=== PATIENT | male | born 1970 | race Caucasian/White ===

== ENCOUNTER 2018-04-03 10:01 | Observation (INO) | payer BC, SELFPAY ==
[2018-04-03] VITALS (13 sets, daily range): BP systolic 101–157; BP diastolic 61–99; PULSE 74–109; RESP 16–20; TEMP 36.6–38.9; O2SAT 93–99; BMI 29.7; BMI 29.8
--- NOTE | 2018-04-03 10:28 | CT_ITS ---
STUDY: CT ABDOMEN AND PELVIS WITH CONTRAST REASON FOR EXAM: Male, 47 years old. Right lower quadrant pain since last night with elevated white blood cell count. RADIATION DOSAGE (If Supplied By Facility): CTDIvol = ( 16.63 ) mGy, DLP = ( 1311.65 ) mGycm TECHNIQUE: Transaxial images were obtained from the dome of the diaphragm to the symphysis pubis without oral contrast. 100ML ml of Isovue 300 contrast was administered. Sagittal and coronal images were reconstructed. Individualized dose optimization techniques were used for this CT. COMPARISON: None. FINDINGS: Minimal degree of increased markings at the lung bases suggestive of linear atelectasis. The visualized portions of the heart are within normal limits. There is decreased attenuation of the liver consistent with steatosis. Normal gallbladder and extrahepatic biliary system. Normal spleen. Normal pancreas. Normal bilateral adrenal glands. Normal right kidney. Normal left kidney. There is a small hiatal hernia. Normal small intestine. Normal colon. There is a tubular, thick-walled appendix (>7mm), consistent with acute appendicitis. Normal abdominal aorta. Normal inferior vena cava. Normal retroperitoneum. Normal urinary bladder. There is a right-sided inguinal hernia containing adipose tissue. Grade 1 anterior listhesis of L5 on S1 with spondylolysis of the pars interarticularis of the L5 vertebrae. CT/Abdomen/Pelvis W IV Cont ONLY IMPRESSION: Findings in keeping with acute appendicitis with inflammatory changes in the right lower quadrant. No abscess is seen at this time. Fatty infiltration of the liver. Electronically Signed: Noe Mello MD at 11:28 EDT Tel [phone], Service support ,
--- NOTE | 2018-04-03 10:29 | ED.VIS.GEN ---
History of Present Illness Chief Complaint: Abd Pain Informant: Patient Onset: Hours - 10-11 Context: Gradual Onset Timing: Continuous Quality: aching Location: periumbilical, worse to the right. no radiation. no migration. Current Severity: Moderate Maximum Severity: Moderate Worsened by: nothing Relieved by: nothing. tried rosalind-seltzer, no help. 2 BM's overnight without relief. Associated Symptoms: anorexia. no n/v or fevers. no injury. Prior similar symptoms: No Past Medical History - Allergies and Home Meds Allergies/Adverse Reactions: Allergies Penicillins Allergy (Verified 04/03/18 10:02) Unknown Primary Care Physician: Horacio Campos MD [Primary Care Provider] - Past Medical History: None Surgical History: - - possibly umbilical surgery when baby but pt not sure Lives: Spouse/ Significant Other Smoking Status: Never smoker Drugs: None Review of Systems All systems negative except as indicated General: Reports: Malaise Gastrointestinal: Reports: Abdominal pain. Denies: Nausea, Vomiting, Diarrhea, Constipation, Melena, Hematochezia Genitourinary: Denies: Dysuria, Hematuria, Frequency Musculoskeletal: Denies: Back pain Physical Exam Vital Signs/Narrative: Vital Signs Temp Pulse Resp BP Pulse Ox 04/03/18 10:04 98.5 F 85 17 149/93 H 97 Inital Vital Signs reviewed: Yes General: Well nourished, Well developed Head: Normocephalic, Atraumatic Eyes: Perrl, EOMI ENT: Moist mucous membranes, No rhinorrhea Neck: Supple, Nontender Cardiovascular: Regular rate, Regular rhythm, No murmurs Respiratory: No distress, CTA bilaterally, Chest nontender Abdomen: Soft, Nondistended, Normal bowel sounds, Tender - RLQ only. Negative for: Guarding, Rebound tenderness, Psoas sign, Obturator sign, Rovsig's sign, Lacey's sign Back: Nontender, Normal Inspection. Negative for: CVA tenderness Extremities: Nontender, No edema Skin: Normal color, No rash Neurological: Alert, Oriented x3, Cranial nerves II-XII grossly intact, Normal Strength, Normal Sensation Psychological: Normal affect Diagnostic/Tx/Re-eval Impressions Abdomen/Pelvis CT 04/03/18 10:28 IMPRESSION: Findings in keeping with acute appendicitis with inflammatory changes in the right lower quadrant. No abscess is seen at this time. Fatty infiltration of the liver. Electronically Signed: Noe Mello MD at 11:28 EDT Tel [phone], Service support , 04/03/18 10:28 Abdomen/Pelvis W IV Cont ONLY [CT] Stat Laboratory Results 04/03/18 04/03/18 04/03/18 Range/Units 10:15 10:15 11:30 WBC 13.0 H (4.4-11.0) K/mm3 RBC 5.47 (4.6-6.2) M/mm3 Hgb 17.0 H (13.0-16.5) g/dl Hct 49.6 (40-54) % MCV 90.7 (80-94) fL MCH 31.1 (27.0-32.0) pg MCHC 34.3 (32-36) g/gl RDW 12.6 (11.6-14.6) % RDW Differential 41.6 (35.1-43.9) fl Plt Count 185 (150-450) K/mm3 MPV 12.2 H (6.2-12.0) fl Immature Gran % (Auto) 0.100 (0.0-0.9) % Neut % (Auto) 83.6 H (47-70) % Lymph % (Auto) 8.0 L (19-41) % Ogle % (Auto) 7.8 (0-10) % Eos % (Auto) 0.4 (0-5) % Baso % (Auto) 0.1 (0-1) % Absolute Neuts (auto) 10.9 H (2.0-7.7) X10^3/uL Absolute Lymphs (auto) 1.04 (0.83-4.51) X10^3/ul Total Counted Not Reportable Sodium 138 (136-145) mmol/L Potassium 4.0 (3.5-5.1) mmol/L Chloride 99 (98-107) mmol/L Carbon Dioxide 30.0 (21.0-32.0) mmol/L Anion Gap 9 (5-15) BUN 20 H (7-18) mg/dL Creatinine 1.04 (0.70-1.30) mg/dL Estim Creat Clear Calc 91.51 ml/min Est GFR (MDRD) Af Amer 97 (>60) mL/min Est GFR (MDRD) Non-Af 81 (>60) mL/min BUN/Creatinine Ratio 19.2 (10-20) RATIO Glucose 103 (74-106) mg/dL Calcium 9.4 (8.5-10.1) mg/dL Urine Color Yellow (Yellow) Urine Clarity Clear (Clear) Urine pH 6.5 (5.0 - 8.0) Ur Specific [place] 1.005 (1.002-1.030) Urine Protein Negative (Negative) mg/dl Urine Glucose (UA) Normal (Normal) mg/dl Urine Ketones Negative (Negative) mg/dl Urine Occult Blood Negative (Negative) /ul Urine Nitrite Negative (Negative) Urine Bilirubin Negative (Negative) mg/dL Urine Urobilinogen Normal (Normal) mg/dl Ur Leukocyte Esterase Negative (Negative) /ul - Medical Decision Making Patient has leukocytosis with left shift, and a CT consistent with appendicitis nonruptured. Discussed with the patient who is okay with the surgeon air cargo ground operations supervisor, who is Dr. Patel. She will see the patient in the ER. Ancef ordered. Patient is feeling a little better after morphine and is stable clinically and hemodynamically at this time. Plan is to operating room. Critical care time 32 minutes. Not including procedures. ED Disposition - Plan for ED Patient: Disposition: Acute Care Hospital [facility] Chief Complaint: Abd Pain Diagnosis: Acute appendicitis
[2018-04-03 10:36] LABS: Absolute Lymphocyte Count 1.04 X10^3/ul (0.83-4.51); Absolute Neutrophil Count 10.9 X10^3/uL (2.0-7.7); Basophil# 0.01 X10^3/uL; Basophil% 0.1 % (0-1); Eosinophil# 0.05 X10^3/uL; Eosinophils% 0.4 % (0-5); Hematocrit 49.6 % (40-54); Lymphocyte # 1.04 X10^3/ul (4.0); Mean Corp Hgb Conc 34.3 g/gl (32-36); Mean Corpuscular Hgb 31.1 pg (27.0-32.0); Mean Corpuscular Volume 90.7 fL (80-94); Mean Platelet Vol. 12.2 fl (6.2-12.0); Monocyte# 1.01 X10^3/uL; Monocyte% 7.8 % (0-10); Neutrophil # 10.89 X10^3/uL (2.7-7.7); Neutrophil % 83.6 % (47-70); Platelet Count 185 K/mm3 (150-450); RBC Distribution Width CV 12.6 % (11.6-14.6); RBC Distribution Width SD 41.6 fl (35.1-43.9); Red Blood Count 5.47 M/mm3 (4.6-6.2)
[2018-04-03 10:37] LABS: POSITIVE COUNT NO; POSITIVE DIFFERENTIAL NO; POSITIVE MORPHOLOGY NO
[2018-04-03] MEDS: 0.9% Normal Saline 1,000 ML 125 ML IV ×2 (10:39→20:00)
[2018-04-03] MEDS: Morphine 4 MG/ML Syringe IV ×4 (10:40→15:08)
[2018-04-03 10:43] LABS: Anion Gap 9 (5-15); BUN 20 mg/dL (7-18); BUN/Creat Ratio 19.2 RATIO (10-20); Calcium,Total 9.4 mg/dL (8.5-10.1); Chloride 99 mmol/L (98-107); Creatinine, Serum 1.04 mg/dL (0.70-1.30); EST Glomerular Filtration Rate 81 mL/min (>60); Est Glom Filt Rate - Afr Amer 97 mL/min (>60); Estimated Creatinine Clearance 91.51 ml/min; Glucose 103 mg/dL (74-106); Sodium Level 138 mmol/L (136-145)
--- NOTE | 2018-04-03 11:38 | NURSING ---
DR JAC GATES
[2018-04-03 11:40] LABS: Bacteria 0 SEEN /hpf (None Seen); Mucous, Urine 0 SEEN /hpf (<or=2+); Squamous Epithelial Cells - UA 0 SEEN /hpf (0-5); White Blood Cells 0 SEEN /hpf (0-5)
[2018-04-03 11:44] LABS: Color, Urine Yellow (Yellow); Glucose, Dipstick Normal (Normal); Ketone-Dipstick Negative (Negative); Leukocyte Esterase-Dipstick Negative /ul (Negative); Nitrite-Dipstick Negative (Negative); Occult Blood-Urine Negative /ul (Negative); Protein-Dipstick Negative (Negative); Specific Gravity, Urine 1.005 (1.002-1.030); Urine Bilirubin Dipstick Negative (Negative); Urine Clarity Clear (Clear); Urine Urobilinogen Normal (Normal); Urine pH 6.5 (5.0 - 8.0)
--- NOTE | 2018-04-03 11:49 | NURSING ---
DR NATHAN IN ER
[2018-04-03 11:53] LABS: Red Blood Cells-Urine 0-5 SEEN /hpf (0-5)
[2018-04-03] MEDS: Cefazolin 2 GM in 0.9% Normal Saline 100 ML IV (11:59)
--- NOTE | 2018-04-03 12:05 | HP.PCM_ITS ---
History and Physical Date of Admission: 04/03/18 Chief Complaint: abdominal pain History of Present Illness: 47 y/o WM presents with sudden onset of right lower quadrant abdominal pain at around MDNT. Awoke patient from sleep. Presented to ED for evaluation. WBC is 13K with left shift of differential. Afebrile. CT scan - tubular, thick-walled appendix (>7mm), consistent with acute appendicitis, also right inguinal hernia Past Medical History: hypertension Past Surgical History: right ACL repair Medications: lisnopril zyrtec prilosec Allergies: pcn Social history: TOB use denies , lives with Review of Systems: General - denies fevers Cardiovascular denies chest pain, denies history of heart attack Pulmonary denies shortness of breath, denies coughing up blood Gastrointestinal as per HPI, denies blood in stools Neurological denies numbness/weakness of extremities, denies seizurese Genitourinary denies burning with urination, denies blood in urine Hematological denies spontaneous/prolonged bleeding Skin denies open non healing wounds Musculoskeletal denies history of fractures Endocrine denies diabetes Psychological denies hallucinations Physical examination: Vital signs Ht: 5'11 Wt: 215# General WD/WN WM in no apparent distress, alert and oriented, not septic appearing HEENT Normocephalic. EOM intact with sclera clear and no icterus noted. Neck is supple with no jugular venous distention noted. Trachea is midline. Lungs clear to auscultation. normal breath sounds in all lung martinez. No rales/rhonchi/wheezing noted. No labored breathing noted, such as retractions. Heart normal S1 and S2 auscultated. No rubs/clicks/murmurs noted. Normal size and location by auscultation. Abdomen soft but tender in right lower quadrant with positive Rovsing's sign , decreased bowel sounds. Extremities no calf tenderness or swelling noted. No pitting edema noted. Genitourinary/Rectal deferred Skin no rashes noted. Normal skin integrity. Neurological no focal deficits Psychological normal affect, patient is calm and appropriate Impression: appendicitis by CT scan elevated WBC with left shift right lower quadrant abdominal pain Informed consent: I have discussed the above with the patient and his who is present with him. I have offered the patient the procedure of laparoscopic appendectomy. I have explained the procedure to the patient. I have counseled the patient as to the risks of the procedure, including but not limited to: infection, bleeding, injury to any blood vessels/nerves, scar tissue, injury to any intraabdominal organs, injury to kidney/ureters, injury to bowel/bladder, intraabdominal abscess/bleeding, hernias at incisional sites, wound infections, possible open procedure, complications of anesthesia, postoperative pneumonia/cardiac problems/blood clots etc. the patient understands. He agrees to proceed. I have answered all questions to the patient?s satisfaction and the patient has no further questions.
--- NOTE | 2018-04-03 12:06 | NURSING ---
316 JAC APPENDICITIS OBS
[2018-04-03] MEDS: 0.9% NaCl Peripheral Flush Adult/Peds IV (15:08)
--- NOTE | 2018-04-03 16:00 | APP_PTH ---
PATIENT: KRISTIE BAUTISTA LOC: MS3 U#:[id number] AGE/SX: 47/M ROOM: RI316 RE04/03/[address]: Dr. Zuleyka Patel MD : 1970 BED: 1 DIS: 04/04/2018 SPEC #: [id number] RECD: 04/04/18 06:57 STATUS: STEPHANIE REDominguez #: [id number] YUKI: 04/03/18 16:[address]: Zuleyka Patel DEPT: SURGICAL PATHOLOGY RECD BY: Dayo Kang ENTERED: 04/04/18 11:39 SP TYPE: APPENDIX OTHR DR: Dr. Horacio Campos MD Tissues: Appendix, NOS Procedures: Surgery Specimen Level III HEADER OPERATION: Laparoscopic appendectomy PRE-OP DIAGNOSIS: Acute appendicitis TISSUE SUBMITTED: Appendix MICROSCOPIC DIAGNOSIS Appendix, appendectomy: Acute necrotizing appendicitis. Acute serositis. AM:cr 04/07/18 MICROSCOPIC DESCRIPTION Slides are reviewed. GROSS DESCRIPTION Received is one container labeled with the patient's name and designated appendix. The specimen consists of a vermiform appendix measuring 8 cm in length and 1 cm in average diameter. No gross perforations are evident. Sections reveal a patent lumen. Data Transcriber sections are submitted in one cassette. / AM:cr 04/04/18 TC:2 CPT: 81357
--- NOTE | 2018-04-03 17:16 | OP.PN_ITS ---
Immediate Post-Op Note Date of Procedure: 04/03/18 Primary Surgeon/Physician: Zuleyka Patel licensed massage practitioner: NOT,DEFINED Pre-Operative Diagnosis: appendicitis by CT scan Post-Operative Diagnosis: appendicitis Surgery/Procedure Performed:: laparoscopic appendectomy Description of Surgical Findings:: severe appendicitis, no evidence of perforation, but very friable wall Estimated Blood Loss: < 20 Specimen's removed: appendix Type of Anesthesia:: General ASA Class: ASA2 Plus Emergency - Admit VTE Documentation VTE Present on Admission: Yes VTE Mechan Device Prophylaxis: SCD's
--- NOTE | 2018-04-03 17:24 | ED.DCSUM_ITS ---
History of Present Illness Chief Complaint: Abd Pain Informant: Patient Onset: Hours - 10-11 Context: Gradual Onset Timing: Continuous Quality: aching Location: periumbilical, worse to the right. no radiation. no migration. Current Severity: Moderate Maximum Severity: Moderate Worsened by: nothing Relieved by: nothing. tried rosalind-seltzer, no help. 2 BM's overnight without relief. Associated Symptoms: anorexia. no n/v or fevers. no injury. Prior similar symptoms: No Past Medical History - Allergies and Home Meds Allergies/Adverse Reactions: Allergies Penicillins Allergy (Verified 04/03/18 10:02) Unknown Primary Care Physician: Horacio Campos MD [Primary Care Provider] - Past Medical History: None Surgical History: - - possibly umbilical surgery when baby but pt not sure Lives: Spouse/ Significant Other Smoking Status: Never smoker Drugs: None Review of Systems All systems negative except as indicated General: Reports: Malaise Gastrointestinal: Reports: Abdominal pain. Denies: Nausea, Vomiting, Diarrhea, Constipation, Melena, Hematochezia Genitourinary: Denies: Dysuria, Hematuria, Frequency Musculoskeletal: Denies: Back pain Physical Exam Vital Signs/Narrative: Vital Signs Temp Pulse Resp BP Pulse Ox 04/03/18 10:04 98.5 F 85 17 149/93 H 97 Inital Vital Signs reviewed: Yes General: Well nourished, Well developed Head: Normocephalic, Atraumatic Eyes: Perrl, EOMI ENT: Moist mucous membranes, No rhinorrhea Neck: Supple, Nontender Cardiovascular: Regular rate, Regular rhythm, No murmurs Respiratory: No distress, CTA bilaterally, Chest nontender Abdomen: Soft, Nondistended, Normal bowel sounds, Tender - RLQ only. Negative for: Guarding, Rebound tenderness, Psoas sign, Obturator sign, Rovsig's sign, Lacey's sign Back: Nontender, Normal Inspection. Negative for: CVA tenderness Extremities: Nontender, No edema Skin: Normal color, No rash Neurological: Alert, Oriented x3, Cranial nerves II-XII grossly intact, Normal Strength, Normal Sensation Psychological: Normal affect Diagnostic/Tx/Re-eval Impressions Abdomen/Pelvis CT 04/03/18 10:28 IMPRESSION: Findings in keeping with acute appendicitis with inflammatory changes in the right lower quadrant. No abscess is seen at this time. Fatty infiltration of the liver. Electronically Signed: Noe Mello MD at 11:28 EDT Tel [phone], Service support , 04/03/18 10:28 Abdomen/Pelvis W IV Cont ONLY [CT] Stat Laboratory Results 04/03/18 04/03/18 04/03/18 Range/Units 10:15 10:15 11:30 WBC 13.0 H (4.4-11.0) K/mm3 RBC 5.47 (4.6-6.2) M/mm3 Hgb 17.0 H (13.0-16.5) g/dl Hct 49.6 (40-54) % MCV 90.7 (80-94) fL MCH 31.1 (27.0-32.0) pg MCHC 34.3 (32-36) g/gl RDW 12.6 (11.6-14.6) % RDW Differential 41.6 (35.1-43.9) fl Plt Count 185 (150-450) K/mm3 MPV 12.2 H (6.2-12.0) fl Immature Gran % (Auto) 0.100 (0.0-0.9) % Neut % (Auto) 83.6 H (47-70) % Lymph % (Auto) 8.0 L (19-41) % [place] % (Auto) 7.8 (0-10) % Eos % (Auto) 0.4 (0-5) % Baso % (Auto) 0.1 (0-1) % Absolute Neuts (auto) 10.9 H (2.0-7.7) X10^3/uL Absolute Lymphs (auto) 1.04 (0.83-4.51) X10^3/ul Total Counted Not Reportable Sodium 138 (136-145) mmol/L Potassium 4.0 (3.5-5.1) mmol/L Chloride 99 (98-107) mmol/L Carbon Dioxide 30.0 (21.0-32.0) mmol/L Anion Gap 9 (5-15) BUN 20 H (7-18) mg/dL Creatinine 1.04 (0.70-1.30) mg/dL Estim Creat Clear Calc 91.51 ml/min Est GFR (MDRD) Af Amer 97 (>60) mL/min Est GFR (MDRD) Non-Af 81 (>60) mL/min BUN/Creatinine Ratio 19.2 (10-20) RATIO Glucose 103 (74-106) mg/dL Calcium 9.4 (8.5-10.1) mg/dL Urine Color Yellow (Yellow) Urine Clarity Clear (Clear) Urine pH 6.5 (5.0 - 8.0) Ur Specific [place] 1.005 (1.002-1.030) Urine Protein Negative (Negative) mg/dl Urine Glucose (UA) Normal (Normal) mg/dl Urine Ketones Negative (Negative) mg/dl Urine Occult Blood Negative (Negative) /ul Urine Nitrite Negative (Negative) Urine Bilirubin Negative (Negative) mg/dL Urine Urobilinogen Normal (Normal) mg/dl Ur Leukocyte Esterase Negative (Negative) /ul - Medical Decision Making Patient has leukocytosis with left shift, and a CT consistent with appendicitis nonruptured. Discussed with the patient who is okay with the surgeon cushion cover inspector, who is Dr. Patel. She will see the patient in the ER. Ancef ordered. Patient is feeling a little better after morphine and is stable clinically and hemodynamically at this time. Plan is to operating room. Critical care time 32 minutes. Not including procedures. ED Disposition - Plan for ED Patient: Disposition: Acute Care [facility] Chief Complaint: Abd Pain Diagnosis: Acute appendicitis
[2018-04-03] MEDS: Bupiv/Epi 0.5% Mpf 30 ML Vial (18:19)
--- NOTE | 2018-04-03 19:38 | NURSING ---
Pt back to floor from surgery.
[2018-04-03] MEDS: levoFLOXacin IV 750 MG/150 ML BAG 100 MG IV (20:00)
[2018-04-04 01:36] VITALS: BP 118/70; PULSE 80; RESP 16; TEMP 36.4; O2SAT 95
[2018-04-04] MEDS: 0.9% Normal Saline 1,000 ML 125 ML IV ×2 (05:27→14:26)
[2018-04-04 07:36] VITALS: BP 117/73; PULSE 69; RESP 16; TEMP 37.2; O2SAT 94
--- NOTE | 2018-04-04 07:42 | PCM.OPRPT ---
Report of Operation Date of Procedure: 04/03/18 Pre-Operative Diagnosis: appendicitis by CT scan Post-Operative Diagnosis: appendicitis Surgery/Procedure Performed:: laparoscopic appendectomy Description of Surgical Findings:: severe appendicitis, no evidence of perforation, but very friable wall communications equipment supervisor: NOT,DEFINED Type of Anesthesia:: General Anesthesiologist: Darnell Ann Specimen's removed: appendix Estimated Blood Loss (mL): < 20 Fluids Replaced: 1000 ml RL Description of Procedure: After informed consent was obtained, the patient was brought into the operating room. Appropriate time out protocol was followed. He was placed in the supine position on the operating table. The patient was then placed under general anesthesia. The patients abdomen was then prepped with a sterile surgical skin preparation and sterile surgical drapes were placed. The infraumbilical skin fold was grasped with penetrating clamps and the skin and subcutaneous tissues were infiltrated with local anesthetic. A skin incision was then made with a 15 blade scalpel. A Veress needle was then inserted into the intraabdominal cavity and checked to be in the proper position with a normal saline drop test. A CO2 pneumoperitoneum was then created. Once this was achieved, the Veress needle was removed and a 5 mm trocar was placed in its stead. A 5 mm laparoscope was then inserted into the trocar. Careful examination of the intraabdominal contents was then done. There was no evidence of injury to any internal organs from placement of the Veress needle or the trocar. Under direct visualization, a 12mm suprapubic trocar and a 5mm left lower quadrant trocar was then placed into the intraabdominal cavity. The skin and subcutaneous tissues at these sites were first infiltrated with local anesthetic. Attention was then directed to the right lower quadrant. The appendix was visualized. The mesentery of the appendix was taken down by cauterizing the tissue from the free edge to the base of the appendix with the Harmonic scalpel. Once the base of the appendix was freed of surrounding tissues, then the linear gastrointestinal stapling device was brought into the abdominal cavity via the 12mm port and placed across the base of the appendix. The stapling device was fired, thus stapling across the base of the appendix and transecting it simultaneously. The appendiceal wall was very friable. There was evidence of surrounding fibrinous exudate in the area. There was no purulent fluid. The appendix was then placed in an Endobag and this was brought out through the suprapubic trocar. The appendix was then forwarded to Pathology for analysis. The appendiceal stump was carefully examined. There was no evidence of any active bleeding or fecal leakage. The surrounding tissues were also examined and there was no evidence of any active bleeding or fecal/bile leakage. The area was vigorously irrigated with fluid and all irrigant was aspirated out. The intraabdominal cavity was examined and there was no evidence of further inflammation or tissue abnormality. There was no evidence of any peritoneal fluid. The CO2 pneumoperitoneum was released and all trocars were removed intact. The suprapubic fascia was reapproximated with a figure-of-8 vicryl suture. All skin incisions were reapproximated with monocryl suture. Cavilon and steristrips were applied to reinforce skin closure and proper sterile dressings were placed. The patient was then extubated and brought to the Recovery Room in stable condition. - Complications none noted - Admit VTE Documentation VTE Present on Admission: Yes VTE Mechan Device Prophylaxis: SCD's
--- NOTE | 2018-04-04 07:43 | PCM.PN.SRG ---
Subjective: patient feeling well - Physical Exam General: Alert, Oriented x3 Oral: Moist Mucosa Neck: Supple Abdomen: Soft - appropriate incisional tenderness Vital Signs Temp Pulse Resp BP Pulse Ox 97.6 F L 80 16 118/70 95 04/04/18 01:36 04/04/18 01:36 04/04/18 01:36 04/04/18 01:36 04/04/18 01:36 Oxygen Flow Rate (L/min) 2 Oxygen Delivery Method Room Air Weight: 96.8 kg Body Mass Index (BMI) 29.7 Intake and Output for Last 24 Hours 04/02/18 04/03/18 04/04/18 23:59 23:59 23:59 Intake Total 2443 / 2443 1061 / 1061 Output Total 600 / 600 Balance 1843 / 1843 1061 / 1061 Medical Necessity - Tobacco Use Smoking Status: Never smoker Assessment/Plan All Active Problems Acute appendicitis (Acute) POD#1 s/p laparoscopic appendectomy Plan: d/c to home when passes flatus
--- NOTE | 2018-04-04 07:44 | PCM.DC.APPY ---
Discharge Diet: No Restrictions - drink plenty of fluids, especially water avoid carbonated beverages for a few days Discharge Activity: Return to Normal Activity, May not drive while taking narcotic pain medications. Lifting Restrictions: no lifting greater than 20 pounds for two weeks Call your doctor if your incision/area has: Continuous Slow Oozing, Foul Smelling Discharge Call your doctor if you observe: Fever of 101 or Higher Additional Dressing/Incision Instructions:: Leave dressings in place. May get wet in the shower. Do not soak - no tub baths/swimming Medications to take at Discharge Cetirizine HCl [Zyrtec] 10 mg PO DAILY 04/03/18 Lisinopril [Zestril] 10 mg PO DAILY 04/03/18 Omeprazole Magnesium [Prilosec Otc] 20 mg PO DAILY 04/03/18 Hydrocodone/Acetaminophen [[place] 5-325 Tablet] 1 ea PO Q6H PRN PRN 5 Days #10 tab 04/04/18 levoFLOXacin tablet [Levaquin tablet] 500 mg PO DAILY 5 Days #5 tab 04/04/18 Allergies/Adverse Reactions: Allergies Penicillins Allergy (Verified 04/03/18 10:02) Unknown The following prescriptions were given: Hydrocodone/Acetaminophen [[place] 5-325 Tablet] 1 ea PO Q6H PRN PRN 5 Days #10 tab PRN Reason: Pain levoFLOXacin tablet [Levaquin tablet] 500 mg PO DAILY 5 Days #5 tab Primary Care Physician: Horacio Campos MD [Primary Care Provider] - Test Results: Test results from this visit will be discussed in further detail at your follow-up appointment, if applicable. Please Follow Up With: Zuleyka Patel MD - [phone] When: to be seen on April 11, please call for time, thank you
--- NOTE | 2018-04-04 07:47 | DCINST_ITS ---
Discharge Diet: No Restrictions - drink plenty of fluids, especially water avoid carbonated beverages for a few days Discharge Activity: Return to Normal Activity, May not drive while taking narcotic pain medications. Lifting Restrictions: no lifting greater than 20 pounds for two weeks Call your doctor if your incision/area has: Continuous Slow Oozing, Foul Smelling Discharge Call your doctor if you observe: Fever of 101 or Higher Additional Dressing/Incision Instructions:: Leave dressings in place. May get wet in the shower. Do not soak - no tub baths/swimming Medications to take at Discharge Cetirizine HCl [Zyrtec] 10 mg PO DAILY 04/03/18 Lisinopril [Zestril] 10 mg PO DAILY 04/03/18 Omeprazole Magnesium [Prilosec Otc] 20 mg PO DAILY 04/03/18 Hydrocodone/Acetaminophen [[place] 5-325 Tablet] 1 ea PO Q6H PRN PRN 5 Days #10 tab 04/04/18 levoFLOXacin tablet [Levaquin tablet] 500 mg PO DAILY 5 Days #5 tab 04/04/18 Allergies/Adverse Reactions: Allergies Penicillins Allergy (Verified 04/03/18 10:02) Unknown The following prescriptions were given: Hydrocodone/Acetaminophen [[place] 5-325 Tablet] 1 ea PO Q6H PRN PRN 5 Days #10 tab PRN Reason: Pain levoFLOXacin tablet [Levaquin tablet] 500 mg PO DAILY 5 Days #5 tab Primary Care Physician: Horacio Campos MD [Primary Care Provider] - Test Results: Test results from this visit will be discussed in further detail at your follow- up appointment, if applicable. Please Follow Up With: Zuleyka Patel MD - [phone] When: to be seen on April 11, please call for time, thank you
[2018-04-04] MEDS: Acetaminophen 325 MG Tablet 650 MG PO (08:33)
[2018-04-04] MEDS: Lisinopril 10 MG Tablet PO (09:50)
[2018-04-04] MEDS: levoFLOXacin IV 750 MG/150 ML BAG 100 MG IV (09:50)
[2018-04-04] MEDS: Pantoprazole Sodium 20 MG Tablet PO (09:51)
[2018-04-04] MEDS: Loratadine 10 MG Tablet PO (09:52)
[2018-04-04 14:18] VITALS: BP 122/74; PULSE 67; RESP 16; TEMP 36.8; O2SAT 98
[2018-04-04] MEDS: Bisacodyl 10 MG Suppository RECTAL (18:24)
== END 2018-04-04 19:32 | disposition home or self-care (01) ==
LOC: ED 11:51 → MS3 12:08
PROVIDERS: Admitting Provider Surgery; Emergency Provider Emergency Medicine; Family Provider Family Medicine; PCP Family Medicine; Visit Provider Surgery
PROC: 0DTJ4ZZ Resection of Appendix, Percutaneous Endoscopic Approach (ICD-10-PCS; CPT 44970; principal; 2018-04-03 15:40)
DX: K35.80 Unspecified acute appendicitis (principal); I10 Essential (primary) hypertension; J45.909 Unspecified asthma, uncomplicated; Z79.899 Other long term (current) drug therapy; E78.00 Pure hypercholesterolemia, unspecified
CPT/HCPCS: 00840; 44970; 74177; 80048; 81001; 85025; 88304; 96361; 96365; 96366; 96367; 96375; 96376; 97802; 99218; 99284; J7030; J7120; Q9967; A4216; G0378; J2405

== ENCOUNTER → 2023-05-21 | Outpatient (CLI) | payer BC, SELFPAY | END | disposition home or self-care (01) | PROVIDERS: PCP Family Medicine; Referring Provider Psychiatry & Neurology Sleep Medicine; Visit Provider Psychiatry & Neurology Sleep Medicine | DX: G47.33 Obstructive sleep apnea (adult) (pediatric) (principal); G47.34 Idiopathic sleep related nonobstructive alveolar hypoventilation; R40.0 Somnolence | CPT/HCPCS: 95811 ==